=== PATIENT | male | born 1980 | race Caucasian/White ===

== ENCOUNTER 2018-09-25 10:03 | Emergency (ER) | payer BC ==
[2018-09-25 10:27] VITALS: BP 133/91
[2018-09-25] MEDS: Ketorolac INJ* 60 MG/2 ML VIAL IM ONE (10:58)
--- NOTE | 2018-09-25 12:18 | UC ---
Back Pain HPI - HPI Summary HPI Summary: Pt c/o gradual onset of low back pain and stiffness X 3 days. Pt denies injury or prior hx of back pain. Denies urinary symptom. Pt states that he does frequent lifting of heavy objects at work. - History of Current Complaint Chief Complaint: UCBackPain Stated Complaint: LOWER BACK PAIN x3 DAYS Time Seen by Provider: 09/25/18 10:17 Hx Obtained From: Patient Onset/Duration: Gradual Onset, Lasting Days, Still Present, Worse Since - onset Timing: Constant Severity Initially: Mild Severity Currently: Moderate Pain Intensity: 7 Pain Scale Used: 0-10 Numeric Back Pain: Is Diffuse Character: Dull, Aching, Spasmodic, Stiffness Aggravating Factor(s): Movement, Lifting, Bending Alleviating Factor(s): Nothing Associated Signs And Symptoms: Positive: Negative - Risk Factors AAA Risk Factors: Negative TAD Risk Factors: Negative Cauda Equina Risk Factors: Negative Epidural Abscess Risk Factors: Negative - Allergies/Home Medications Allergies/Adverse Reactions: Allergies Allergy/AdvReac Type Severity Reaction Status Date / Time environmental Allergy Eyes Uncoded 09/25/18 10:28 Itchy/Swollen/Red/Watery Home Medications: Home Medications Naproxen Sodium [Aleve] 440 mg PO DAILY PRN 09/25/18 [History Confirmed 09/25/18 ] PMH/Surg Hx/FS Hx/Imm Hx Previously Healthy: Yes - Surgical History Surgical History: None - Family History Known Family History: Positive: Cardiac Disease - Social History Occupation: Employed Full-time Lives: With Family Alcohol Use: Occasionally Substance Use Type: Marijuana Substance Use Comment - Amount & Last Used: daily- yesterday Smoking Status (MU): Light Every Day Tobacco Smoker Type: Cigarettes Amount Used/How Often: 1/5 PPD Length of Time of Smoking/Using Tobacco: 17 Years Have You Smoked in the Last Year: Yes Household Exposure Type: Cigarettes - Immunization History Most Recent Influenza Vaccination: Not the Vaccination Up to Date: No Review of Systems All Other Systems Reviewed And Are Negative: Yes Constitutional: Positive: Negative Skin: Positive: Negative Eyes: Positive: Negative ENT: Positive: Negative Respiratory: Positive: Negative Cardiovascular: Positive: Negative Gastrointestinal: Positive: Negative Genitourinary: Positive: Negative Motor: Positive: Decreased ROM - low back pain Neurovascular: Positive: Negative Musculoskeletal: Positive: Myalgia Neurological: Positive: Negative Psychological: Positive: Negative Is Patient Immunocompromised?: No Physical Exam Triage Information Reviewed: Yes Appearance: Pain Distress Vital Signs: Initial Vital Signs Temp 98.3 F 09/25/18 10:19 Pulse 82 09/25/18 10:19 Resp 20 09/25/18 10:19 BP 133/91 09/25/18 10:19 Pulse Ox 100 09/25/18 10:19 Vital Signs Reviewed: Yes Eye Exam: Normal ENT Exam: Normal Dental Exam: Normal Neck exam: Normal Respiratory: Positive: No respiratory distress Musculoskeletal: Positive: ROM Limited @ - low back., Other: - low back lordosis reduced Neurological Exam: Normal Psychological Exam: Normal Skin Exam: Normal Back Pain Course/Dx - Differential Dx/Diagnosis Differential Diagnosis/HQI/PQRI: Strain, Sprain Provider Diagnosis: Low back pain, non-specific Discharge - Sign-Out/Discharge Documenting (check all that apply): Patient Departure All imaging exams completed and their final reports reviewed: No Studies - Discharge Plan Condition: Stable Disposition: HOME Prescriptions: Cyclobenzaprine TAB* [Flexeril 10 MG TAB*] 10 mg PO Q8H PRN #21 tab PRN Reason: Pain Ibuprofen TAB* [Motrin TAB* 800 MG] 800 mg PO Q8H PRN #21 tab PRN Reason: Pain predniSONE TAB* [Deltasone 10 MG TAB*] 30 mg PO DAILY #12 tab Patient Education Materials: Acute Low Back Pain (ED) Forms: *Work Release Referrals: [facility] [Outside] - If Needed No Primary Care Phys,NOPCP [Primary Care Provider] - - Billing Disposition and Condition Condition: STABLE Disposition: Home - Attestation Statements Provider Attestation: Per institutional requirements, I have reviewed the chart, however, I was not consulted specifically or made aware of this patient by the midlevel provider. I did not personally evaluate, interact with , or disposition this patient.
== END 2018-09-25 11:25 | disposition home or self-care (01) ==
LOC: UCCORT 10:03
DX: X50.0XXA Overexertion from strenuous movement or load, initial encounter (principal); Y93.89 Activity, other specified; Y92.89 Other specified places as the place of occurrence of the external cause; Y99.0 Civilian activity done for income or pay; F17.210 Nicotine dependence, cigarettes, uncomplicated; M54.5 Low back pain
CPT/HCPCS: 96372; 99202; G0463; J1885

== ENCOUNTER 2019-02-25 08:23 | Emergency (ER) | payer BC ==
[2019-02-25 08:37] VITALS: BP 127/72
--- NOTE | 2019-02-25 09:38 | UC ---
Lower Extremity/Ankle HPI - HPI Summary HPI Summary: 38-YEAR-OLD MALE comes in with a chief complaint of right sciatic distribution pain. Started about 3 days ago. Pain is in the buttocks goes down the posterior right leg down into the lateral right calf. No weakness or numbness. Patient's been having his wallet there and when he sits on it makes the pain worse. He believes compression from the wallet is causing the pain to begin with. Denies any back pain. Ambulation or any Compression of the area makes the pain worse. Denies any weakness or numbness. No complaint of a change of bowel or bladder. He's been taking acetaminophen which helps slightly with the pain. - History of Current Complaint Chief Complaint: UCBackPain Stated Complaint: LOW BACK PAIN Time Seen by Provider: 02/25/19 09:20 Pain Intensity: 3 - Allergies/Home Medications Allergies/Adverse Reactions: Allergies Allergy/AdvReac Type Severity Reaction Status Date / Time environmental Allergy Eyes Uncoded 02/25/19 08:37 Itchy/Swollen/Red/Watery PMH/Surg Hx/FS Hx/Imm Hx Previously Healthy: Yes - Surgical History Surgical History: None - Family History Known Family History: Positive: Cardiac Disease - Social History Alcohol Use: Rare Substance Use Type: Marijuana Substance Use Comment - Amount & Last Used: 1-2 days ago Smoking Status (MU): Light Every Day Tobacco Smoker Type: Cigarettes Amount Used/How Often: 3-5 cig daily Length of Time of Smoking/Using Tobacco: 17 Years Have You Smoked in the Last Year: Yes Household Exposure Type: Cigarettes - Immunization History Most Recent Influenza Vaccination: Not the Vaccination Up to Date: No Review of Systems All Other Systems Reviewed And Are Negative: Yes Constitutional: Positive: Negative Skin: Positive: Negative Eyes: Positive: Negative ENT: Positive: Negative Respiratory: Positive: Negative Cardiovascular: Positive: Negative Motor: Positive: Negative Neurovascular: Positive: Negative Musculoskeletal: Positive: Other: - SEE HPI Neurological: Positive: Negative Psychological: Positive: Negative Is Patient Immunocompromised?: No Physical Exam Triage Information Reviewed: Yes Appearance: Well-Appearing, Well-Nourished, Pain Distress - MILD WITH ROM Vital Signs: Initial Vital Signs Temp 97.4 F 02/25/19 08:29 Pulse 73 02/25/19 08:29 Resp 18 02/25/19 08:29 BP 127/72 02/25/19 08:29 Pulse Ox 100 02/25/19 08:29 Vital Signs Reviewed: Yes Eye Exam: Normal Eyes: Positive: Conjunctiva Clear Neck: Positive: Supple Respiratory: Positive: No respiratory distress Musculoskeletal: Positive: Other: - Nontender to palpation on the low back. Patient is tender to palpation in the right buttock and down the right leg and the sciatic nerve distribution. Patient has normal range of motion with the ankle knees and hips with full strength no sensation deficits. Neurological Exam: Normal Neurological: Positive: Alert, Muscle Tone Normal Psychological Exam: Normal Psychological: Positive: Age Appropriate Behavior Skin Exam: Normal Lower Extremity Course/Dx - Course Course Of Treatment: No neurologic deficit. Pain is in the sciatic distribution on the right. At this time no evidence of the low back causing the problem. Plan is ice Lidoderm patches ibuprofen. Patient continues Frost if it's helpful. Follow- up with sports medicine if not completely improved. Patient reports he was taking acetaminophen 1500 mg at a time and I let him know the appropriate dosing for acetaminophen and the risks of overdose of acetaminophen. - Differential Dx/Diagnosis Provider Diagnosis: Right sided sciatica Discharge - Sign-Out/Discharge Documenting (check all that apply): Patient Departure All imaging exams completed and their final reports reviewed: No Studies - Discharge Plan Condition: Stable Disposition: HOME Prescriptions: HYDROcodone/ACETAMIN 5-325 MG* [[place] 5-325 TAB*] 1 tab PO Q4H PRN #20 tab MDD 6 PRN Reason: Pain Patient Education Materials: Sciatica (ED) Referrals: [facility] [Provider Group] Additional Instructions: FOLLOW UP WITH SPORTS MEDICINE IF NOT COMPLETELY IMPROVED. GET REEVALUATED SOONER IF YOUR CONDITION WORSENS OR ANY QUESTIONS OR CONCERNS. - Billing Disposition and Condition Condition: STABLE Disposition: Home
== END 2019-02-25 09:53 | disposition home or self-care (01) ==
LOC: UCCORT 08:23
DX: M54.31 Sciatica, right side (principal); J30.89 Other allergic rhinitis; F17.210 Nicotine dependence, cigarettes, uncomplicated
CPT/HCPCS: 99212; G0463